=== PATIENT | male | born 1960 | race Caucasian/White ===

== ENCOUNTER → 2021-02-01 | Outpatient (CLI) | payer MEDICARE ==
[~2021-02-01] MED LIST: DICL75TA2 PO; PRD10T PO
--- NOTE | 2021-02-01 14:29 | Diagnostic Imaging Report ---
PROCEDURE: MR imaging cervical spine without contrast. TECHNIQUE: Multiplanar, multisequence MR imaging of the cervical spine was performed without contrast. INDICATION: No known injury. Woke up with numbness in his right hand for 3 weeks. FINDINGS: There is normal height and alignment of the vertebral bodies. There is diffuse degenerative disc and facet disease present. At C2-C3, there is mild disc space narrowing and bulging of the disc but no focal disc herniation or central canal stenosis. There is some bilateral foraminal narrowing. At C3-C4, there is bulging of the disc with no focal disc herniation. There is spondylosis. The AP dimension of the bony canal in the midline is approximately 8 mm. There is bilateral foraminal narrowing. At C4-C5, there is bulging of the disc and degenerated facets. This is causing mass effect upon the spinal canal with an AP dimension of approximately 5 mm with effacement of the cervical cord. There is also bilateral foraminal narrowing. At C5-C6, there is disc space narrowing and bulging of the disc with no focal disc herniation. Spondylosis is causing mild central canal narrowing as well as right lateral recess and bilateral foraminal narrowing, right greater than left. At C6-C7, there is mild degenerative disc and facet disease with no disc herniation or bony stenosis. There is no mass or acute bony abnormality at any level. There are Modic changes of the endplates, most pronounced at C5-C6. There is abnormal signal within the cervical cord at C3-C4 and C4-C5 from myelitis or myelomalacia and likely associated with the stenosis and effacement of the spinal canal. IMPRESSION: There is diffuse degenerative disc and facet disease present resulting in multilevel stenosis, most pronounced at C4-C5. There is some abnormal signal within the cord. Dictated by: Dictated on workstation # [id number]
== END ==
LOC: RAD 13:15
PROVIDERS: ATTEND Family Medicine
DX: M48.02 Spinal stenosis, cervical region (principal); M50.323 Other cervical disc degeneration at C6-C7 level
CPT/HCPCS: 72141